=== PATIENT | male | born 1985 | race Two or more races ===

== ENCOUNTER 2018-01-28 21:43 | Inpatient (IN) | payer MEDICAID, OTHER ==
[~2018-01-28] VITALS: Ht 193 cm; Wt 147.6 kg
[2018-01-28] MEDS ORDERED: ONDANSETRON ODT 4 MG ONE (21:59)
[2018-01-28] MEDS ORDERED: HYDROmorphone 2 MG/ML, 1ML ONE (21:59)
[2018-01-28] MEDS ORDERED: HYDROmorphone 2 MG/ML, 1ML IM ONE (22:00)
[2018-01-28] MEDS ORDERED: ONDANSETRON ODT 4 MG PO ONE (22:00)
[2018-01-28] MEDS ORDERED: OXYcodone/APAP 5/325MG TABLET ONE (23:11)
[2018-01-28] MEDS ORDERED: OXYcodone/APAP 5/325MG TABLET PO ONE (23:30)
[2018-01-29] MEDS ORDERED: ONDANSETRON ODT 4 MG PO PRN (00:30)
[2018-01-29] MEDS ORDERED: ACETAMINOPHEN 325 MG TABLET PO PRN (00:30)
[2018-01-29] MEDS ORDERED: BISACODYL 10 MG SUPP PR PRN (00:30)
[2018-01-29] MEDS ORDERED: POLYETHYLENE GLYCOL 17 GM PACKET PO PRN (00:30)
[2018-01-29 00:42] LABS: BASOPHILS # (AUTO) 0.07 x10^3/uL (0-0.1); BASOPHILS % (AUTO) 1 % (0-1); EOSINOPHILS # (AUTO) 0.01 x10^3/uL (0-0.4); EOSINOPHILS % (AUTO) 0 % (1-7); LYMPHOCYTES # (AUTO) 1.29 x10^3/uL (1-3.4); LYMPHOCYTES % (AUTO) 10 % (22-44); MD NO; MEAN CORPUSCULAR HEMOGLOBIN 27.4 pg (27.5-34.5); MEAN CORPUSCULAR HGB CONC 33.4 g/dL (33.2-36.2); MEAN CORPUSCULAR VOLUME 82.1 fL (81-97); MEAN PLATELET VOLUME 8.5 fL (7.4-10.4); MONOCYTES # (AUTO) 0.77 x10^3/uL (0.2-0.8); MONOCYTES % (AUTO) 6 % (2-9); NEUTROPHILS # (AUTO) 10.26 x10^3/uL (1.8-6.8); NEUTROPHILS % (AUTO) 83 % (42-75); PLATELET COUNT 124 x10^3/uL (130-400); RED BLOOD COUNT 4.13 x10^6/uL (4.38-5.82); RED CELL DISTRIBUTION WIDTH 17.7 % (9.4-14.8)
[2018-01-29] MEDS ORDERED: MORPHINE SULFATE 4 MG/ML, 1ML ONE ×3 (00:45→00:46)
[2018-01-29 00:50] LABS: ALBUMIN 3.3 g/dL (3.4-5.0); ANION GAP 11 mmol/L (5-15); CALCIUM 8.4 mg/dL (8.5-10.1); CHLORIDE 98 mmol/L (98-107); CREATININE 2.27 mg/dL (0.7-1.3)
[2018-01-29] MEDS ORDERED: ONDANSETRON ODT 4 MG ONE (00:54)
[2018-01-29] MEDS ORDERED: morphine SULFATE 10 MG/ML, 1ML IVPush ONE (01:00)
[2018-01-29 01:25] VITALS: BP 167/94
[2018-01-29 02:36] VITALS: BP 167/94
[2018-01-29] MEDS: OXYcodone/APAP 5/325MG TABLET PO PRN ×5 (03:28→21:54)
[2018-01-29 08:56] VITALS: BP 145/83
[2018-01-29] MEDS: SODIUM CHLORIDE FLUSH 10ML SYR IVF SCH ×2 (09:00→21:54)
[2018-01-29] MEDS: SENNA/DOCUSATE TABLET PO SCH (09:00)
[2018-01-29] MEDS ORDERED: METHOCARBAMOL 750 MG TABLET PO ONE (09:30)
[2018-01-29] MEDS ORDERED: POTASSIUM CHLORIDE 20 MEQ TAB.ER.PRT PO ONE (12:00)
[2018-01-29 13:42] VITALS: BP 144/82
[2018-01-29] MEDS: SODIUM CHLORIDE 0.9% 1,000 ML IV SCH ×2 (16:59→23:37)
[2018-01-29 19:03] VITALS: BP 151/88
[2018-01-29] MEDS: METHOCARBAMOL 750 MG TABLET PO PRN (23:37)
[2018-01-30 00:32] VITALS: BP 141/69
[2018-01-30] MEDS: SODIUM CHLORIDE 0.9% 1,000 ML IV SCH ×5 (02:59→23:38)
[2018-01-30] MEDS: OXYcodone/APAP 5/325MG TABLET PO PRN ×5 (05:03→21:20)
[2018-01-30] MEDS: METHOCARBAMOL 750 MG TABLET PO PRN (05:09)
[2018-01-30 06:07] LABS: BASOPHILS # (AUTO) 0.06 x10^3/uL (0-0.1); BASOPHILS % (AUTO) 1 % (0-1); EOSINOPHILS % (AUTO) 1 % (1-7); LYMPHOCYTES # (AUTO) 1.53 x10^3/uL (1-3.4); LYMPHOCYTES % (AUTO) 17 % (22-44); MD NO; MEAN CORPUSCULAR HGB CONC 33.8 g/dL (33.2-36.2); MEAN CORPUSCULAR VOLUME 82.8 fL (81-97); MEAN PLATELET VOLUME 8.2 fL (7.4-10.4); MONOCYTES # (AUTO) 0.76 x10^3/uL (0.2-0.8); MONOCYTES % (AUTO) 8 % (2-9); NEUTROPHILS % (AUTO) 74 % (42-75); PLATELET COUNT 104 x10^3/uL (130-400); RED BLOOD COUNT 3.43 x10^6/uL (4.38-5.82); RED CELL DISTRIBUTION WIDTH 18.4 % (9.4-14.8)
[2018-01-30 06:15] LABS: ANION GAP 10 mmol/L (5-15); CALCIUM 7.7 mg/dL (8.5-10.1); CHLORIDE 94 mmol/L (98-107); CREATININE 1.48 mg/dL (0.7-1.3)
[2018-01-30 06:32] LABS: CREATINE KINASE, TOTAL 5282 U/L (39-308)
[2018-01-30 07:59] VITALS: BP 160/81
[2018-01-30] MEDS: SODIUM CHLORIDE FLUSH 10ML SYR IVF SCH ×2 (08:30→20:35)
[2018-01-30] MEDS: POLYETHYLENE GLYCOL 17 GM PACKET PO SCH (08:42)
[2018-01-30] MEDS: POTASSIUM CHLORIDE 20 MEQ TAB.ER.PRT PO SCH ×2 (08:42→16:58)
[2018-01-30] MEDS: SENNA/DOCUSATE TABLET PO SCH (09:00)
[2018-01-30] MEDS: METHOCARBAMOL 750 MG TABLET PO SCH ×3 (10:50→20:35)
[2018-01-30 11:54] LABS: TROPONIN I < 0.015 ng/mL (0.000-0.045)
[2018-01-30 13:08] VITALS: BP 157/81
[2018-01-30] MEDS: MORPHINE SULFATE 4 MG/ML, 1ML IVPush PRN (17:15)
[2018-01-30 18:39] LABS: MICROSCOPIC NOT IND
[2018-01-30 18:41] VITALS: BP 143/73
[2018-01-30 18:43] LABS: CULTURE INDICATED? NO
[2018-01-30 18:46] LABS: CHLORIDE,URINE RANDOM < 10 mmol/L; POTASSIUM,URINE RANDOM 9 mmol/L; SODIUM,URINE RANDOM < 5 mmol/L
[2018-01-31 00:53] VITALS: BP 141/72
[2018-01-31] MEDS: OXYcodone/APAP 5/325MG TABLET PO PRN ×5 (01:47→19:48)
[2018-01-31 05:29] LABS: BASOPHILS # (AUTO) 0.02 x10^3/uL (0-0.1); BASOPHILS % (AUTO) 0 % (0-1); CHLORIDE 102 mmol/L (98-107); EOSINOPHILS # (AUTO) 0.05 x10^3/uL (0-0.4); EOSINOPHILS % (AUTO) 1 % (1-7); LYMPHOCYTES # (AUTO) 1.22 x10^3/uL (1-3.4); LYMPHOCYTES % (AUTO) 20 % (22-44); MD NO; MEAN CORPUSCULAR HEMOGLOBIN 28.1 pg (27.5-34.5); MEAN CORPUSCULAR HGB CONC 33.7 g/dL (33.2-36.2); MEAN CORPUSCULAR VOLUME 83.5 fL (81-97); MEAN PLATELET VOLUME 8.2 fL (7.4-10.4); MONOCYTES # (AUTO) 0.71 x10^3/uL (0.2-0.8); MONOCYTES % (AUTO) 12 % (2-9); NEUTROPHILS # (AUTO) 4.18 x10^3/uL (1.8-6.8); NEUTROPHILS % (AUTO) 68 % (42-75); PLATELET COUNT 108 x10^3/uL (130-400); RED BLOOD COUNT 3.42 x10^6/uL (4.38-5.82); RED CELL DISTRIBUTION WIDTH 18.3 % (9.4-14.8)
[2018-01-31 05:48] LABS: ALANINE AMINOTRANSFERASE 78 U/L (12-78); ALBUMIN 2.8 g/dL (3.4-5.0); ALKALINE PHOSPHATASE 114 U/L (45-117); ANION GAP 10 mmol/L (5-15); BILIRUBIN,TOTAL 3.1 mg/dL (0.2-1.0); CALCIUM 7.6 mg/dL (8.5-10.1); CREATINE KINASE, TOTAL 4938 U/L (39-308); CREATININE 1.09 mg/dL (0.7-1.3); TOTAL PROTEIN 6.5 g/dL (6.4-8.2)
[2018-01-31] MEDS: SODIUM CHLORIDE 0.9% 1,000 ML IV SCH ×4 (05:52→19:48)
[2018-01-31] MEDS: METHOCARBAMOL 750 MG TABLET PO SCH ×4 (05:52→21:26)
[2018-01-31 06:56] VITALS: BP 146/80
[2018-01-31] MEDS: POLYETHYLENE GLYCOL 17 GM PACKET PO SCH (08:23)
[2018-01-31] MEDS: SENNA/DOCUSATE TABLET PO SCH (08:23)
[2018-01-31] MEDS: SODIUM CHLORIDE FLUSH 10ML SYR IVF SCH ×2 (09:18→19:48)
[2018-01-31 14:00] VITALS: BP 155/71
[2018-01-31 20:43] VITALS: BP 168/75
[2018-02-01] MEDS: OXYcodone/APAP 5/325MG TABLET PO PRN ×3 (00:14→08:41)
[2018-02-01] MEDS: MORPHINE SULFATE 4 MG/ML, 1ML IVPush PRN (00:14)
[2018-02-01] MEDS: SODIUM CHLORIDE 0.9% 1,000 ML IV SCH ×3 (00:14→12:00)
[2018-02-01 01:47] VITALS: BP 154/79
[2018-02-01] MEDS: METHOCARBAMOL 750 MG TABLET PO SCH ×2 (05:21→11:36)
[2018-02-01 05:58] LABS: MEAN CORPUSCULAR HEMOGLOBIN 28.2 pg (27.5-34.5); MEAN CORPUSCULAR HGB CONC 33.8 g/dL (33.2-36.2); MEAN CORPUSCULAR VOLUME 83.3 fL (81-97); RED BLOOD COUNT 3.26 x10^6/uL (4.38-5.82); RED CELL DISTRIBUTION WIDTH 18.9 % (9.4-14.8)
[2018-02-01 06:59] LABS: BASOPHILS # (AUTO) 0.01 x10^3/uL (0-0.1); BASOPHILS % (AUTO) 0 % (0-1); EOSINOPHILS # (AUTO) 0.07 x10^3/uL (0-0.4); EOSINOPHILS % (AUTO) 2 % (1-7); LYMPHOCYTES # (AUTO) 1.27 x10^3/uL (1-3.4); LYMPHOCYTES % (AUTO) 30 % (22-44); MD SCAN; MEAN PLATELET VOLUME 7.8 fL (7.4-10.4); MONOCYTES # (AUTO) 0.56 x10^3/uL (0.2-0.8); MONOCYTES % (AUTO) 13 % (2-9); NEUTROPHILS # (AUTO) 2.26 x10^3/uL (1.8-6.8); NEUTROPHILS % (AUTO) 54 % (42-75); PLATELET COUNT 93 x10^3/uL (130-400)
[2018-02-01 07:10] VITALS: BP 159/85
[2018-02-01] MEDS: SENNA/DOCUSATE TABLET PO SCH (08:41)
[2018-02-01] MEDS: POLYETHYLENE GLYCOL 17 GM PACKET PO SCH (08:41)
[2018-02-01] MEDS: SODIUM CHLORIDE FLUSH 10ML SYR IVF SCH (08:42)
[2018-02-01] MEDS ORDERED: OXYC1TAB7 PO (09:40)
[2018-02-01] MEDS ORDERED: METH750T2 PO (09:40)
== END 2018-02-01 12:30 | disposition home or self-care (01) | DRG 562 ==
LOC: ED 22:07 → EDIP 01-29 → 4NOR 01-29 00:56 → DCLOUNGE 02-01 12:19
PROVIDERS: ADMIT Hospitalist; ATTEND Hospitalist
DX: S42.143A Displaced fracture of glenoid cavity of scapula, unspecified shoulder, initial encounter for closed fracture (principal); N17.0 Acute kidney failure with tubular necrosis; S42.201A Unspecified fracture of upper end of right humerus, initial encounter for closed fracture; E87.1 Hypo-osmolality and hyponatremia; M62.82 Rhabdomyolysis; T42.6X5A Adverse effect of other antiepileptic and sedative-hypnotic drugs, initial encounter; E66.9 Obesity, unspecified; E87.6 Hypokalemia; D72.829 Elevated white blood cell count, unspecified; W18.30XA Fall on same level, unspecified, initial encounter; S43.004A Unspecified dislocation of right shoulder joint, initial encounter; I10 Essential (primary) hypertension; Z80.3 Family history of malignant neoplasm of breast; Z83.3 Family history of diabetes mellitus; Z88.8 Allergy status to other drugs, medicaments and biological substances; Z68.39 Body mass index [BMI] 39.0-39.9, adult; Y93.89 Activity, other specified; Y92.89 Other specified places as the place of occurrence of the external cause; Y99.8 Other external cause status
CPT/HCPCS: 36415; 80048; 80053; 81003; 82040; 82436; 82550; 82553; 83735; 84133; 84300; 84484; 85025; 93005; 96372; 96374; 99285; G0378; J1170; Q0162; J2270; J7030

== ENCOUNTER 2018-06-29 14:23 | Inpatient (IN) | payer MEDICAID, OTHER ==
[~2018-06-29] VITALS: Ht 190.5 cm; Wt 137.5 kg
[~2018-06-29 14:23] MED LIST: METH750T2 PO; OXYC1TAB7 PO
[2018-06-29 15:08] LABS: BASOPHILS # (AUTO) 0.03 x10^3/uL (0-0.1); BASOPHILS % (AUTO) 1 % (0-1); EOSINOPHILS # (AUTO) 0.04 x10^3/uL (0-0.4); EOSINOPHILS % (AUTO) 1 % (1-7); LYMPHOCYTES # (AUTO) 0.97 x10^3/uL (1-3.4); LYMPHOCYTES % (AUTO) 20 % (22-44); MD NO; MEAN CORPUSCULAR HGB CONC 31.9 g/dL (33.2-36.2); MEAN CORPUSCULAR VOLUME 75.3 fL (81-97); MEAN PLATELET VOLUME 7.3 fL (7.4-10.4); MONOCYTES # (AUTO) 0.34 x10^3/uL (0.2-0.8); MONOCYTES % (AUTO) 7 % (2-9); NEUTROPHILS # (AUTO) 3.63 x10^3/uL (1.8-6.8); NEUTROPHILS % (AUTO) 73 % (42-75); PLATELET COUNT 149 x10^3/uL (130-400); RED BLOOD COUNT 4.01 x10^6/uL (4.38-5.82); RED CELL DISTRIBUTION WIDTH 18.8 % (9.4-14.8)
[2018-06-29 15:16] LABS: ALANINE AMINOTRANSFERASE 97 U/L (12-78); ALBUMIN 3.7 g/dL (3.4-5.0); ANION GAP 8 mmol/L (5-15); CALCIUM 9.4 mg/dL (8.5-10.1); CHLORIDE 98 mmol/L (98-107); CREATININE 0.88 mg/dL (0.7-1.3)
[2018-06-29 15:26] LABS: ALKALINE PHOSPHATASE 104 U/L (45-117); BILIRUBIN,TOTAL 3.7 mg/dL (0.2-1.0); FREE T4 (FREE THYROXINE) 1.25 ng/dL (0.76-1.46); TOTAL PROTEIN 7.7 g/dL (6.4-8.2)
--- NOTE | 2018-06-29 15:55 | NUR ---
ASSUMED CARE OF PT FROM [facility] AT THIS TIME. PT C/O INABILTY TO SLEEP AT NIGHT WITH ANXIETY AND HEART PALPITATIONS WHEN HE LAYS DOWN. PT REPORTS TRING TO TIRE HIMSELF DURING THE DAY TO BE ABLE TO SLEEP AT NIGHT. PT ON MONITOR. PT SEEN IN PT AND ALL RESULTS BACK.
[2018-06-29] MEDS ORDERED: LORazepam 1MG TABLET ONE (16:24)
--- NOTE | 2018-06-29 16:28 | NUR ---
BREAK RN: PT AMBULATES TO RESTROOM WITHOUT DIFFICULTY, URINE SENT TO LAB. MEDICATED ORDERED. NO NEEDS AT THIS TIME, CALL LIGHT WITHIN REACH.
[2018-06-29] MEDS ORDERED: LORazepam 1MG TABLET PO ONE (16:30)
[2018-06-29 16:36] LABS: AMPHETAMINE SCREEN, URINE Negative (Negative); BARBITURATE SCREEN, URINE Negative (Negative); BENZODIAZEPINE SCREEN, URINE Negative (Negative); CANNABINOID SCREEN, URINE Negative (Negative); COCAINE SCREEN, URINE Negative (Negative); METHADONE SCREEN, URINE Negative (Negative); OPIATE SCREEN, URINE Negative (Negative)
[2018-06-29 16:43] LABS: MICROSCOPIC NOT IND
[2018-06-29 16:47] LABS: CULTURE INDICATED? NO
--- NOTE | 2018-06-29 17:30 | NUR ---
IV STARTED AND FLUIDS RUNNING PER DR. RODRIGUEZ TO SEE IF HR WILL COME DOWN.
[2018-06-29] MEDS ORDERED: SODIUM CHLORIDE 0.9% 1,000ML IVBOLUS ONE (18:00)
[2018-06-29] MEDS ORDERED: MAALOX/HYOSCYAMINE/LIDOCAINE 45 ML BTL ONE (18:23)
[2018-06-29] MEDS ORDERED: LORazepam 2 MG/ML, 1ML ONE (18:24)
--- NOTE | 2018-06-29 18:25 | NUR ---
HR 110 AFTER FLUIDS.
[2018-06-29] MEDS ORDERED: LORazepam 2 MG/ML, 1ML IVPush ONE (18:30)
[2018-06-29] MEDS ORDERED: MAALOX/HYOSCYAMINE/LIDOCAINE 45 ML BTL PO ONE (18:30)
--- NOTE | 2018-06-29 18:35 | NUR ---
CHART UP FOR MD RECHECK. PT MEDICATED WITH ATIVAN AND GI COCKTAIL PER MD ORDER.
--- NOTE | 2018-06-29 18:55 | NUR ---
PT TO [facility] AND DR. LAW ALCARAZ AT [facility] FOR RECHECK. WHEN PT WAS PLACED ON MACHINE CLOTH TRIMMER, PT'S HEART RATE WAS IN THE 130'S. PT DENIES ANY CP OR SOB.
--- NOTE | 2018-06-29 19:08 | NUR ---
TP RN: CALLED [facility] AND SPOKE WITH UNRULY LAROSE CM. PER HER PT. DOES NOT TRANSFER TO [facility] UNLESS A HIGHER LEVEL OF CARE IS NEEDED. PT. TO REMAIN HERE.
[2018-06-29] MEDS ORDERED: FERROUS SULFATE 325 MG TABLET PO SCH (21:00)
[2018-06-29] MEDS ORDERED: POLYETHYLENE GLYCOL 17 GM PACKET PO PRN (21:00)
[2018-06-29] MEDS ORDERED: LORazepam 1MG TABLET PO PRN (21:00)
[2018-06-29] MEDS ORDERED: ONDANSETRON ODT 4 MG PO PRN (21:00)
[2018-06-29] MEDS ORDERED: BISACODYL 10 MG SUPP PR PRN (21:00)
[2018-06-29] MEDS ORDERED: POTASSIUM CHLORIDE 20 MEQ TAB.ER.PRT PO ONE (21:30)
[2018-06-29] MEDS: HEPARIN 5,000 UNITS/ML, 1ML SQ SCH (21:52)
[2018-06-29] MEDS: SODIUM CHLORIDE FLUSH 10ML SYR IVF SCH (21:54)
[2018-06-30 00:20] VITALS: BP 128/63
[2018-06-30] MEDS ORDERED: ZOLPIDEM 5MG TABLET PO ONE (01:00)
[2018-06-30] MEDS: HEPARIN 5,000 UNITS/ML, 1ML SQ SCH ×3 (05:30→23:11)
[2018-06-30 05:56] LABS: BASOPHILS # (AUTO) 0.02 x10^3/uL (0-0.1); BASOPHILS % (AUTO) 1 % (0-1); EOSINOPHILS # (AUTO) 0.07 x10^3/uL (0-0.4); EOSINOPHILS % (AUTO) 2 % (1-7); LYMPHOCYTES # (AUTO) 1.52 x10^3/uL (1-3.4); LYMPHOCYTES % (AUTO) 32 % (22-44); MD NO; MEAN CORPUSCULAR HEMOGLOBIN 24.6 pg (27.5-34.5); MEAN CORPUSCULAR HGB CONC 32.9 g/dL (33.2-36.2); MEAN CORPUSCULAR VOLUME 74.8 fL (81-97); MEAN PLATELET VOLUME 7.9 fL (7.4-10.4); MONOCYTES # (AUTO) 0.38 x10^3/uL (0.2-0.8); MONOCYTES % (AUTO) 8 % (2-9); NEUTROPHILS # (AUTO) 2.84 x10^3/uL (1.8-6.8); NEUTROPHILS % (AUTO) 59 % (42-75); PLATELET COUNT 140 x10^3/uL (130-400); RED BLOOD COUNT 3.59 x10^6/uL (4.38-5.82); RED CELL DISTRIBUTION WIDTH 18.6 % (9.4-14.8)
[2018-06-30 06:09] LABS: ALANINE AMINOTRANSFERASE 79 U/L (12-78); ALBUMIN 3.3 g/dL (3.4-5.0); ANION GAP 6 mmol/L (5-15); CALCIUM 8.7 mg/dL (8.5-10.1); CHLORIDE 105 mmol/L (98-107); CREATININE 0.86 mg/dL (0.7-1.3)
[2018-06-30 06:11] LABS: ALKALINE PHOSPHATASE 97 U/L (45-117); BILIRUBIN,TOTAL 4.3 mg/dL (0.2-1.0); TOTAL PROTEIN 7.2 g/dL (6.4-8.2)
[2018-06-30 07:47] VITALS: BP 134/75
[2018-06-30] MEDS: SENNA/DOCUSATE TABLET PO SCH (09:00)
[2018-06-30] MEDS ORDERED: LORazepam 2 MG/ML, 1ML IV PRN ×4 (09:00)
[2018-06-30] MEDS: SODIUM CHLORIDE FLUSH 10ML SYR IVF SCH ×2 (09:07→22:02)
[2018-06-30] MEDS ORDERED: LORazepam 2 MG/ML, 1ML ONE (09:08)
[2018-06-30] MEDS: IRON SUCROSE COMPLEX 100MG/5ML IV SCH (09:11)
[2018-06-30] MEDS: LORazepam 2 MG/ML, 1ML IV PRN (09:12)
[2018-06-30] MEDS ORDERED: LORazepam 2 MG/ML, 1ML IVPush ONE (10:30)
[2018-06-30 12:44] VITALS: BP 130/79
[2018-06-30 13:32] LABS: BASOPHILS # (AUTO) 0.04 x10^3/uL (0-0.1); BASOPHILS % (AUTO) 1 % (0-1); EOSINOPHILS # (AUTO) 0.06 x10^3/uL (0-0.4); EOSINOPHILS % (AUTO) 1 % (1-7); LYMPHOCYTES # (AUTO) 1.38 x10^3/uL (1-3.4); LYMPHOCYTES % (AUTO) 30 % (22-44); MD NO; MEAN CORPUSCULAR HEMOGLOBIN 24.2 pg (27.5-34.5); MEAN CORPUSCULAR HGB CONC 32.5 g/dL (33.2-36.2); MEAN CORPUSCULAR VOLUME 74.5 fL (81-97); MEAN PLATELET VOLUME 7.9 fL (7.4-10.4); MONOCYTES # (AUTO) 0.35 x10^3/uL (0.2-0.8); MONOCYTES % (AUTO) 8 % (2-9); NEUTROPHILS # (AUTO) 2.76 x10^3/uL (1.8-6.8); NEUTROPHILS % (AUTO) 60 % (42-75); PLATELET COUNT 133 x10^3/uL (130-400); RED BLOOD COUNT 3.52 x10^6/uL (4.38-5.82); RED CELL DISTRIBUTION WIDTH 18.4 % (9.4-14.8)
[2018-06-30 14:57] LABS: OCCULT BLOOD POSITIVE (NEGATIVE)
[2018-06-30 19:10] VITALS: BP 119/66
[2018-06-30] MEDS: ZOLPIDEM 5MG TABLET PO PRN (23:11)
[2018-07-01] MEDS: ZOLPIDEM 5MG TABLET PO PRN ×2 (00:41→23:27)
[2018-07-01 01:30] VITALS: BP 112/56
[2018-07-01] MEDS ORDERED: COSYNTROPIN 0.25 MG IM ONE (05:00)
[2018-07-01 05:07] LABS: ALBUMIN 3.2 g/dL (3.4-5.0); ANION GAP 6 mmol/L (5-15); CALCIUM 8.4 mg/dL (8.5-10.1); CHLORIDE 107 mmol/L (98-107)
[2018-07-01 05:11] LABS: ALANINE AMINOTRANSFERASE 65 U/L (12-78); ALKALINE PHOSPHATASE 96 U/L (45-117); BILIRUBIN,TOTAL 2.7 mg/dL (0.2-1.0); TOTAL PROTEIN 6.8 g/dL (6.4-8.2)
[2018-07-01 07:12] VITALS: BP 116/58
[2018-07-01] MEDS: HEPARIN 5,000 UNITS/ML, 1ML SQ SCH ×3 (08:13→22:49)
[2018-07-01] MEDS: IRON SUCROSE COMPLEX 100MG/5ML IV SCH (08:13)
[2018-07-01] MEDS: SODIUM CHLORIDE FLUSH 10ML SYR IVF SCH ×2 (08:14→20:19)
[2018-07-01] MEDS: LORazepam 2 MG/ML, 1ML IV PRN (08:29)
[2018-07-01] MEDS: SENNA/DOCUSATE TABLET PO SCH (08:51)
[2018-07-01 11:51] VITALS: BP 137/68
[2018-07-01 11:54] VITALS: BP 125/75
[2018-07-01 11:55] VITALS: BP 128/75
[2018-07-01] MEDS ORDERED: GOLYTELY 4,000ML ORAL.SOL PO ONE (17:00)
[2018-07-01] MEDS: SODIUM CHLORIDE 0.9% 1,000 ML IV SCH ×2 (17:03→23:27)
[2018-07-01 19:13] VITALS: BP 153/74
[2018-07-02] VITALS (8 sets, daily range): BP systolic 124–160; BP diastolic 72–85
[2018-07-02] MEDS: SODIUM CHLORIDE 0.9% 1,000 ML IV SCH ×2 (05:55→17:24)
[2018-07-02] MEDS: HEPARIN 5,000 UNITS/ML, 1ML SQ SCH (08:02)
[2018-07-02] MEDS: IRON SUCROSE COMPLEX 100MG/5ML IV SCH (08:03)
[2018-07-02] MEDS: SODIUM CHLORIDE FLUSH 10ML SYR IVF SCH ×2 (08:04→21:00)
[2018-07-02] MEDS: SENNA/DOCUSATE TABLET PO SCH (09:00)
[2018-07-02] MEDS ORDERED: MIDAZOLAM 1 MG/ML, 2ML ONE (09:24)
[2018-07-02] MEDS ORDERED: FENTANYL PF 100 MCG/2ML IV PRN ×2 (09:30)
[2018-07-02] MEDS ORDERED: KETOROLAC 30 MG/1 ML IV PRN ×2 (09:30)
[2018-07-02] MEDS ORDERED: ALBUTEROL SULFATE 2.5 MG/3 ML NPPB PRN ×2 (09:30)
[2018-07-02] MEDS ORDERED: HYDROmorphone 1 MG/ML, 1ML AMP IV PRN (09:30)
[2018-07-02] MEDS ORDERED: MEPERIDINE/PF 25MG/0.5ML IVPush PRN ×2 (09:30)
[2018-07-02] MEDS ORDERED: METOCLOPRAMIDE 5 MG/ML, 2ML IV PRN ×2 (09:30)
[2018-07-02] MEDS ORDERED: ONDANSETRON 2MG/ML, 2ML IVPush PRN ×2 (09:30)
[2018-07-02] MEDS ORDERED: PROMETHAZINE 25 MG/ML, 1ML IV PRN ×2 (09:30)
[2018-07-02] MEDS ORDERED: HYDROmorphone 2 MG/ML, 1ML IV PRN (09:30)
[2018-07-02] MEDS ORDERED: LABETALOL 5MG/ML, 20ML IV PRN ×2 (09:30)
[2018-07-02] MEDS ORDERED: OXYcodone 5 MG/5 ML ORAL.SOL UDC PO PRN ×2 (09:30)
[2018-07-02] MEDS ORDERED: hydrALAzine 20 MG/ML, 1ML IV PRN ×2 (09:30)
[2018-07-02] MEDS ORDERED: FENTANYL PF 100 MCG/2ML ONE (09:56)
[2018-07-02] MEDS ORDERED: PANTOPRAZOLE 80 MG in SODIUM CHLORIDE 0.9% 50 ML IV ONE (10:00)
[2018-07-02] MEDS ORDERED: PROPOFOL 10 MG/ML, 20ML ONE (10:56)
[2018-07-02] MEDS ORDERED: ROCURONIUM 10MG/ML,5ML ONE (10:56)
[2018-07-02] MEDS ORDERED: SUCCINYLCHOLINE 20 MG/ML, 10ML ONE (10:56)
[2018-07-02] MEDS ORDERED: DEXAMETHASONE 4 MG/ML, 1ML ONE (10:56)
[2018-07-02] MEDS ORDERED: ONDANSETRON 2MG/ML, 2ML ONE (10:56)
[2018-07-02] MEDS ORDERED: PANTOPRAZOLE 80 MG in SODIUM CHLORIDE 0.9% 100 ML IV SCH (11:00)
[2018-07-02 12:07] LABS: BASOPHILS # (AUTO) 0.02 x10^3/uL (0-0.1); BASOPHILS % (AUTO) 0 % (0-1); EOSINOPHILS # (AUTO) 0.04 x10^3/uL (0-0.4); EOSINOPHILS % (AUTO) 1 % (1-7); LYMPHOCYTES # (AUTO) 1.03 x10^3/uL (1-3.4); LYMPHOCYTES % (AUTO) 28 % (22-44); MD NO; MEAN CORPUSCULAR HEMOGLOBIN 23.9 pg (27.5-34.5); MEAN CORPUSCULAR HGB CONC 31.7 g/dL (33.2-36.2); MEAN CORPUSCULAR VOLUME 75.4 fL (81-97); MEAN PLATELET VOLUME 7.3 fL (7.4-10.4); MONOCYTES # (AUTO) 0.25 x10^3/uL (0.2-0.8); MONOCYTES % (AUTO) 7 % (2-9); NEUTROPHILS # (AUTO) 2.33 x10^3/uL (1.8-6.8); NEUTROPHILS % (AUTO) 64 % (42-75); PLATELET COUNT 125 x10^3/uL (130-400); RED BLOOD COUNT 3.33 x10^6/uL (4.38-5.82); RED CELL DISTRIBUTION WIDTH 19.1 % (9.4-14.8)
[2018-07-02] MEDS: PANTOPRAZOLE 80 MG in SODIUM CHLORIDE 0.9% 100 ML IV SCH ×2 (13:28→23:20)
[2018-07-02] MEDS: ZOLPIDEM 5MG TABLET PO PRN (23:20)
[2018-07-03] MEDS: SODIUM CHLORIDE 0.9% 1,000 ML IV SCH ×4 (00:16→20:48)
[2018-07-03 01:18] VITALS: BP 134/79
[2018-07-03 05:51] LABS: ALANINE AMINOTRANSFERASE 53 U/L (12-78); ANION GAP 7 mmol/L (5-15); CALCIUM 7.7 mg/dL (8.5-10.1); CHLORIDE 111 mmol/L (98-107)
[2018-07-03 05:54] LABS: ALKALINE PHOSPHATASE 73 U/L (45-117); BILIRUBIN,TOTAL 4.5 mg/dL (0.2-1.0); CREATININE 0.95 mg/dL (0.7-1.3); TOTAL PROTEIN 6.3 g/dL (6.4-8.2)
[2018-07-03 07:29] VITALS: BP 140/80
[2018-07-03] MEDS: SODIUM CHLORIDE FLUSH 10ML SYR IVF SCH ×2 (08:37→20:48)
[2018-07-03] MEDS: SENNA/DOCUSATE TABLET PO SCH (08:37)
[2018-07-03] MEDS: PANTOPRAZOLE 80 MG in SODIUM CHLORIDE 0.9% 100 ML IV SCH ×2 (08:37→17:22)
[2018-07-03] MEDS ORDERED: SODIUM CHLORIDE NASAL SPRAY 45ML BOTTLE NAS PRN (09:00)
[2018-07-03 09:21] LABS: BASOPHILS # (AUTO) 0.01 x10^3/uL (0-0.1); BASOPHILS % (AUTO) 0 % (0-1); EOSINOPHILS # (AUTO) 0.04 x10^3/uL (0-0.4); EOSINOPHILS % (AUTO) 1 % (1-7); LYMPHOCYTES # (AUTO) 1.01 x10^3/uL (1-3.4); LYMPHOCYTES % (AUTO) 24 % (22-44); MD NO; MEAN CORPUSCULAR HEMOGLOBIN 24.3 pg (27.5-34.5); MEAN CORPUSCULAR HGB CONC 31.5 g/dL (33.2-36.2); MEAN CORPUSCULAR VOLUME 77.1 fL (81-97); MEAN PLATELET VOLUME 8.3 fL (7.4-10.4); MONOCYTES % (AUTO) 7 % (2-9); NEUTROPHILS # (AUTO) 2.93 x10^3/uL (1.8-6.8); NEUTROPHILS % (AUTO) 68 % (42-75); PLATELET COUNT 111 x10^3/uL (130-400); RED BLOOD COUNT 3.38 x10^6/uL (4.38-5.82); RED CELL DISTRIBUTION WIDTH 20.9 % (9.4-14.8)
[2018-07-03] MEDS: IRON SUCROSE COMPLEX 100MG/5ML IV SCH (10:07)
[2018-07-03] MEDS ORDERED: POTASSIUM CHLORIDE 10% 40 MEQ/30 ML UDC PO ONE (11:00)
[2018-07-03 15:15] VITALS: BP 138/84
[2018-07-03 19:43] VITALS: BP 144/76
[2018-07-03] MEDS: PANTOPROZOLE 40MG TABLET PO SCH (20:48)
[2018-07-03] MEDS: ZOLPIDEM 5MG TABLET PO PRN (22:22)
[2018-07-04 00:44] VITALS: BP 143/68
[2018-07-04] MEDS: SODIUM CHLORIDE 0.9% 1,000 ML IV SCH ×2 (02:44→09:22)
[2018-07-04 06:33] LABS: MEAN CORPUSCULAR HEMOGLOBIN 25.3 pg (27.5-34.5); MEAN CORPUSCULAR HGB CONC 32.4 g/dL (33.2-36.2); MEAN CORPUSCULAR VOLUME 78.1 fL (81-97); RED BLOOD COUNT 3.43 x10^6/uL (4.38-5.82); RED CELL DISTRIBUTION WIDTH 21.1 % (9.4-14.8)
[2018-07-04 06:35] LABS: ALBUMIN 3.1 g/dL (3.4-5.0); ANION GAP 5 mmol/L (5-15); CALCIUM 8.1 mg/dL (8.5-10.1); CHLORIDE 110 mmol/L (98-107)
[2018-07-04 06:39] LABS: ALANINE AMINOTRANSFERASE 44 U/L (12-78); ALKALINE PHOSPHATASE 72 U/L (45-117); CREATININE 0.78 mg/dL (0.7-1.3); TOTAL PROTEIN 6.7 g/dL (6.4-8.2)
[2018-07-04 06:53] VITALS: BP 142/84
[2018-07-04 07:23] LABS: MEAN PLATELET VOLUME 7.7 fL (7.4-10.4); PLATELET COUNT 99 x10^3/uL (130-400)
[2018-07-04 07:24] LABS: MD MORPH REVIEW ONLY
[2018-07-04 07:26] LABS: <PLATELET ESTIMATE> DECREASED; <PLT MORPHOLOGY> NORMAL PLT MORPH
[2018-07-04 07:27] LABS: ANISOCYTOSIS 1+; BASOPHILLIC STIPPLING 1+; HYPOCHROMIA 1+; MICROCYTOSIS 2+
[2018-07-04] MEDS: SENNA/DOCUSATE TABLET PO SCH (08:20)
[2018-07-04] MEDS: SODIUM CHLORIDE FLUSH 10ML SYR IVF SCH (08:20)
[2018-07-04] MEDS: PANTOPROZOLE 40MG TABLET PO SCH (08:20)
[2018-07-04] MEDS: IRON SUCROSE COMPLEX 100MG/5ML IV SCH (08:20)
[2018-07-04] MEDS ORDERED: PANT40TA5 PO (09:24)
[2018-07-04] MEDS ORDERED: FERR325T18 PO (09:27)
== END 2018-07-04 12:20 | disposition home or self-care (01) | DRG 381 ==
LOC: ED 17:26 → EDIP 18:52 → 4EST 20:11 → DCLOUNGE 07-04 11:55
PROVIDERS: ADMIT Family Medicine; ATTEND Family Medicine
PROC: 3E0G8GC Introduction of Other Therapeutic Substance into Upper GI, Via Natural or Artificial Opening Endoscopic (ICD-10-PCS; 2018-07-02)
PROC: BD41ZZZ Ultrasonography of Esophagus (ICD-10-PCS; 2018-07-02)
PROC: 0DJD8ZZ Inspection of Lower Intestinal Tract, Via Natural or Artificial Opening Endoscopic (ICD-10-PCS; 2018-07-02)
PROC: 30233N1 Transfusion of Nonautologous Red Blood Cells into Peripheral Vein, Percutaneous Approach (ICD-10-PCS; 2018-07-02)
PROC: 0W3P8ZZ Control Bleeding in Gastrointestinal Tract, Via Natural or Artificial Opening Endoscopic (ICD-10-PCS; principal; 2018-07-02 09:00)
DX: K22.11 Ulcer of esophagus with bleeding (principal); E87.1 Hypo-osmolality and hyponatremia; F10.239 Alcohol dependence with withdrawal, unspecified; K76.6 Portal hypertension; L51.1 Stevens-Johnson syndrome; D50.0 Iron deficiency anemia secondary to blood loss (chronic); E87.6 Hypokalemia; F12.90 Cannabis use, unspecified, uncomplicated; G47.00 Insomnia, unspecified; Z63.8 Other specified problems related to primary support group; E66.9 Obesity, unspecified; D50.9 Iron deficiency anemia, unspecified; D69.6 Thrombocytopenia, unspecified; Z80.3 Family history of malignant neoplasm of breast; Z82.49 Family history of ischemic heart disease and other diseases of the circulatory system; Z87.11 Personal history of peptic ulcer disease; Z83.3 Family history of diabetes mellitus; Z87.19 Personal history of other diseases of the digestive system; Z87.891 Personal history of nicotine dependence; F41.9 Anxiety disorder, unspecified; K70.10 Alcoholic hepatitis without ascites; Z87.01 Personal history of pneumonia (recurrent); R16.1 Splenomegaly, not elsewhere classified; Z88.1 Allergy status to other antibiotic agents; Z88.3 Allergy status to other anti-infective agents; Z88.2 Allergy status to sulfonamides; Z68.37 Body mass index [BMI] 37.0-37.9, adult
CPT/HCPCS: 36415; 71045; 76700; 80053; 80074; 80307; 81003; 82272; 82533; 82728; 82977; 83540; 83550; 83735; 84439; 84443; 85025; 85379; 86850; 86900; 86923; 93005; 93306; 96361; 96374; 99285; G0378; J1100; J1644; J1756; J2250; J2405; J2704; J3010; C9113; J0330; J0834; J2060; J7030; P9016

== ENCOUNTER 2018-10-03 13:22 | Emergency (ER) | payer MEDICAID ==
[~2018-10-03] VITALS: Ht 190.5 cm; Wt 134.7 kg
[~2018-10-03 13:22] MED LIST changes: +FERR325T18 PO; +FOLI-17 PO; +MAGN400T50 PO; +MULT1TAB60 PO; +PANT40TA5 PO; +PROP20TA PO; +THIA100T67 PO
--- NOTE | 2018-10-03 13:47 | NUR ---
PT HERE FOR GENERAL CHECK, PT REPORTS THAT HE THEW UP BLOOD AND STOMACH CONTENTS. PT DENIES ANY TRUAMA OR BLACK STOOLS. PTS VSS. NADN AND PT CONNECTED TO MONITORS AND CALL LIGHT IN REACH. AWAITING FURTHER ORDERS.
[2018-10-03] MEDS ORDERED: PANTOPROZOLE 40MG TABLET PO ONE (14:00)
[2018-10-03 14:21] LABS: BASOPHILS # (AUTO) 0.07 x10^3/uL (0-0.1); BASOPHILS % (AUTO) 1 % (0-1); EOSINOPHILS # (AUTO) 0.04 x10^3/uL (0-0.4); EOSINOPHILS % (AUTO) 1 % (1-7); LYMPHOCYTES # (AUTO) 3.23 x10^3/uL (1-3.4); LYMPHOCYTES % (AUTO) 41 % (22-44); MD NO; MEAN CORPUSCULAR HGB CONC 33.3 g/dL (33.2-36.2); MEAN PLATELET VOLUME 7.5 fL (7.4-10.4); MONOCYTES # (AUTO) 0.41 x10^3/uL (0.2-0.8); MONOCYTES % (AUTO) 5 % (2-9); NEUTROPHILS # (AUTO) 4.07 x10^3/uL (1.8-6.8); NEUTROPHILS % (AUTO) 52 % (42-75); PLATELET COUNT 152 x10^3/uL (130-400); RED BLOOD COUNT 4.88 x10^6/uL (4.38-5.82); RED CELL DISTRIBUTION WIDTH 19.6 % (9.4-14.8)
--- NOTE | 2018-10-03 14:21 | NUR ---
MD MARY W SWITCHING TO PROTONIX IV. PT RESTING COMFORTABLE. CALL LIGHT IN REACH
[2018-10-03 14:30] LABS: ALANINE AMINOTRANSFERASE 61 U/L (12-78); ALBUMIN 3.5 g/dL (3.4-5.0); ANION GAP 12 mmol/L (5-15); CALCIUM 8.1 mg/dL (8.5-10.1); CHLORIDE 106 mmol/L (98-107); CREATININE 0.81 mg/dL (0.7-1.3)
[2018-10-03 14:32] LABS: ALKALINE PHOSPHATASE 115 U/L (45-117); BILIRUBIN,TOTAL 3.5 mg/dL (0.2-1.0); TOTAL PROTEIN 7.7 g/dL (6.4-8.2)
[2018-10-03] MEDS ORDERED: PANTOPRAZOLE 40 MG IV ONE (14:47)
[2018-10-03 14:54] VITALS: BP 117/72
--- NOTE | 2018-10-03 14:56 | NUR ---
PT REQUESTING FLUIDS, DENIES V/N. PT RESTING COMFORTABLE W FAMILY AT BEDSIDE. PT DOES NOT APPEAR IN DISTRESS.
[2018-10-03] MEDS ORDERED: PANTOPRAZOLE 40 MG IV IVPush ONE (15:00)
--- NOTE | 2018-10-03 15:22 | NUR ---
PT DENIES N/V/PAIN. DC EDUCATION PROVIDED, PT DEMONSTRATES UNDERSTANDING. PT AMBULATED STEADILY TO DC WITH RN AND MOTHER.
== END 2018-10-03 15:24 | disposition home or self-care (01) ==
LOC: ED 15:15
DX: K29.01 Acute gastritis with bleeding (principal)
CPT/HCPCS: 36415; 71045; 80053; 83690; 85025; 96374; 99284; C9113